=== PATIENT | male | born 1960 | race Caucasian/White ===

== ENCOUNTER → 2016-06-30 | Outpatient (CLI) | payer BC ==
--- NOTE | 2016-06-30 09:30 | CT ---
EXAMINATION TYPE: CT sinus wo con DATE OF EXAM: 06/30/2016 9:14 AM COMPARISON: NONE HISTORY: Chronic sinusitis per order. Recurrent sinus infections with headaches and facial pain per p atient. CT DLP: 683 mGycm. Automated Exposure Control for Dose Reduction was Utilized. TECHNIQUE: CT scan of the sinuses is performed without contrast, axial images are obtained, coronal r eformatted images are also reviewed. FINDINGS: There is mild lobulated mucosal thickening in inferior lateral right maxillary sinus, small polyp or mucous retention cyst is not excluded. There is mild mucosal thickening involving anterior ethmoid sinuses bilaterally in the posterior inferior aspect of left frontal sinus. No suspicious opa cification or air-fluid levels are seen. The ostiomeatal complex is patent bilaterally on the serrano l images. Nasal septum is deviated to right of midline. Visualized portion of mastoid air cells show no abnormal opacification. The globes are intact bilate rally. IMPRESSION: Some mild chronic paranasal sinus disease. No acute paranasal sinus disease identified cu rrently.
== END | disposition home or self-care (01) ==
LOC: RADCTMAIN 08:44
PROVIDERS: ATTEND Otolaryngology
DX: J32.9 Chronic sinusitis, unspecified (principal)
CPT/HCPCS: 70486

== ENCOUNTER → 2018-05-23 | Outpatient (CLI) | payer BC ==
--- NOTE | 2018-05-23 17:45 | US ---
EXAMINATION TYPE: US venous doppler duplex LE RT DATE OF EXAM: 05/23/2018 5:02 PM COMPARISON: NONE CLINICAL HISTORY: I80.9 Phlebitis and pain Right leg. Intermittent right knee pain x 1 year SIDE PERFORMED: Right TECHNIQUE: The lower extremity deep venous system is examined utilizing real time linear array sonog grace with graded compression, doppler sonography and color-flow sonography. VESSELS IMAGED: External Iliac Vein (EIV) Common Femoral Vein Deep Femoral Vein Greater Saphenous Vein * Femoral Vein Popliteal Vein Small Saphenous Vein * Proximal Calf Veins (* superficial vessels) Right Leg: Appears negative for DVT IMPRESSION: 1. Right lower extremity ultrasound negative for deep venous thrombosis.
== END ==
LOC: RADUSMAIN 16:37
PROVIDERS: ATTEND Orthopaedic Surgery
DX: M25.561 Pain in right knee (principal)